=== PATIENT | male | born 1980 | race African-American/Black ===

== ENCOUNTER → 2018-04-03 | Outpatient (CLI) | payer BC ==
[2015-05-18 10:20] VITALS: BP 129/74
[~2018-04-03] MED LIST: AMOX1TAB10 PO; HYDR-2758 PO; POLY17PO29 PO
--- NOTE | 2018-04-03 14:58 | [facility] ---
MRI Cervical Spine Without Contrast History: Neck pain with left radiculopathy, severe muscle spasms, left arm pain and numbness Technique: Multiplanar, multi sequential noncontrast MR imaging was performed of the cervical spine. Comparison: None Findings: Cervical cord caliber is within normal limits without focal signal abnormality. There is no significant abnormality of the cervical medullary junction. Cervical vertebral body stature and AP alignment are maintained. There is straightening of the cervical spine. There is mild degenerative disc disease C3-4, mild disc desiccation C2-3, C4-5, C5-6. There is no significant marrow edema. There are posterior annular tears C4-5 to C6-C7. C2-3: There is posterior central protrusion also component of extrusion extending below the intervertebral disc space. At the intervertebral disc space level, central canal is narrowed to about 6 to 7 mm with contact of the ventral cord. The extrusion extends below the intervertebral disc space to the approximate inferior one third of the C3 vertebral body, estimated about 7 mm CC by 5 to 6 mm transverse by 3 to 4 mm AP. Neural foramina are adequate. C3-C4: There is a shallow right paracentral protrusion. There is effacement of ventral subarachnoid space and contact of the ventral cord, narrowing of the central canal about 7 mm. Neural foramina are adequate. C4-C5: There is a shallow left paracentral protrusion with contact of the left ventral cord, narrowing of the central canal about 8 to 9 mm. Neural foramina are adequate. C5-C6: There is a shallow posterior central left paracentral protrusion, central canal borderline about 10 mm. Neural foramina are adequate. C6-C7: There is protrusion/small extrusion extending very slightly above the intervertebral disc space in the far left lateral recess and left neural foramen estimated about 6 mm AP by 5 mm CC by about 6 mm transverse. There is indentation upon the ventral thecal sac in the far left lateral recess. Central canal is adequate about 11 mm. There is severe narrowing of the left neural foramen. Right neural foramen is adequate. C7-T1: Spinal canal and neural foramina are adequate. Impression: 1. There is protrusion/small extrusion extending slightly above the intervertebral disc space in the far left lateral recess C6-7, also contributes to severe narrowing left neural foramen at this level. 2. There is spinal stenosis on the order of 6 to 7 mm C2-3 and C3-4 as described, to lesser degree at C4-5. There is contact of the ventral cord at C3-4 and C2-3. Electronically signed by: Danie Rust MD (04/03/2018 2:55 PM) [id number]
== END | disposition home or self-care (01) ==
LOC: KCIC MRI 13:04
PROVIDERS: ATTEND Family Medicine
DX: M50.21 Other cervical disc displacement, high cervical region (principal); M48.02 Spinal stenosis, cervical region; M50.31 Other cervical disc degeneration, high cervical region
CPT/HCPCS: 72141